=== PATIENT | male | born 1955 | race Caucasian/White ===

== ENCOUNTER 2019-03-19 07:52 | Emergency (ER) | payer BC ==
--- NOTE | 2019-03-19 08:01 | UC ---
Skin Complaint HPI - HPI Summary HPI Summary: Patient is 63 year old who present today with left buttock redness for past 2 days , getting worse.. Also reports tick bite, was on chest last week , and one before was in january. not sure for how long tick was attached. Had chills yesterday but no fever . Denies any cough chest pain or shortness of breath . Denies any abdominal pain , nausea or vomiting , diarrhea or constipation. Had right buttock cellulitis 3 months ago - History of Current Complaint Time Seen by Provider: 03/19/19 07:56 Stated Complaint: SKIN CONCERN Hx Obtained From: Patient - Allergy/Home Medications Allergies/Adverse Reactions: Allergies Allergy/AdvReac Type Severity Reaction Status Date / Time morphine Allergy Vomiting Verified 03/19/19 08:08 Home Medications: Home Medications Leuprolide Acetate [Lupron Depot (Lupaneta)] 3.75 mg IM SEE INSTRUCTIONS [History Confirmed 03/19/19] PMH/Surg Hx/FS Hx/Imm Hx - Additional Past Medical History Additional PMH: Past medical History:prostrate cancer Past surgical history: prostectomy, Left hip replacement Family history: non-contributory Social history: no alcohol, former smoker, no substance abuse. Previously Healthy: Yes - Surgical History Surgical History: None Surgery Procedure, Year, and Place: Left hip replacement 2014. Prostatectomy Aug 2016 - Social History Alcohol Use: None Substance Use Type: None Smoking Status (MU): Former Smoker Type: Cigarettes Length of Time of Smoking/Using Tobacco: APPROX 15 YRS Have You Smoked in the Last Year: No When Did the Patient Quit Smoking/Using Tobacco: 1987 - Immunization History Most Recent Influenza Vaccination: NONE Most Recent Tetanus Shot: 2010 Most Recent Pneumonia Vaccination: NONE Review of Systems All Other Systems Reviewed And Are Negative: Yes Constitutional: Positive: Chills Skin: Positive: Rash Eyes: Positive: Negative ENT: Positive: Negative Respiratory: Positive: Negative Cardiovascular: Positive: Negative Gastrointestinal: Positive: Negative Genitourinary: Positive: Negative Motor: Positive: Negative Neurovascular: Positive: Negative Musculoskeletal: Positive: Negative Neurological: Positive: Negative Psychological: Positive: Negative Is Patient Immunocompromised?: No Physical Exam - Summary Physical Exam Summary: Physical Exam: Const: Appears well. No signs of apparent distress present. Alert and oriented x 3. Musculo: Walks with a normal gait. Head/Face: Atraumatic, normocephalic on inspection. Eyes: EOMI and PERRLA in both eyes. Conjunctivae clear. No discharge noted ENT: Hearing normal, TM normal appearing bilaterally . Respiratory: Respirations are unlabored. CVS: Regular rate and Rhythm, S1S2 normal , no murmurs identified. Extremities: Peripheral circulation is grossly normal. Pulses 2+ Abdomen : Soft non tender Skin:7 inch x 5 inch area or erythema on upper lateral aspect of the left buttock , no fluctuation or abscess, no drainage. Neuro: Cranial nerves II to XII intact, motor and sensory intact. DTR Intact bilaterally. Mood is normal. Affect is normal. Triage Information Reviewed: Yes Vital Signs Reviewed: Yes Images Front/Back of Body, Lg ([place]): 1 - left upper buttock Course/Dx - Course Course Of Treatment: During the visit today, we discussed the findings . He has cellulitis and given the history of tick bite, not sure how long attached and having some chills, treat it with doxycycline, which will cover both cellulitis and lyme. I will prescribe the medication to the pharmacy . Patient expressed understanding . - Diagnoses Provider Diagnosis: Cellulitis, Tick bite of chest wall Discharge - Sign-Out/Discharge Documenting (check all that apply): Patient Departure All imaging exams completed and their final reports reviewed: No Studies - Discharge Plan Condition: Stable Disposition: HOME Prescriptions: DOXYcycline CAP(*) [DOXYcycline 100MG CAP(*)] 100 mg PO BID 14 Days #28 cap Patient Education Materials: Lyme Disease (ED), Cellulitis (ED), Tick Bite (ED) Referrals: Caden Cote MD [Primary Care Provider] - 3 Days Additional Instructions: Start taking antibiotics . It has been prescribed to the pharmacy . Follow up with your primary care doctor in 2- 3 days. Patients blood pressure slightly high in Urgent care today , plan follow up with PCP for better control Return to Urgent care if symptoms getting worse or area spreading beyond marked area after 2 days of antibiotics. - Billing Disposition and Condition Condition: STABLE Disposition: Home
[2019-03-19 08:07] VITALS: BP 147/75
== END 2019-03-19 08:34 | disposition home or self-care (01) ==
LOC: UCCORT 07:52
DX: L03.317 Cellulitis of buttock (principal); S20.369A Insect bite (nonvenomous) of unspecified front wall of thorax, initial encounter; W57.XXXA Bitten or stung by nonvenomous insect and other nonvenomous arthropods, initial encounter; Y92.9 Unspecified place or not applicable; Z87.891 Personal history of nicotine dependence; Z85.46 Personal history of malignant neoplasm of prostate; Z90.79 Acquired absence of other genital organ(s)
CPT/HCPCS: 99212; G0463